=== PATIENT | male | born 2000 | race Caucasian/White ===

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

== ENCOUNTER 2024-10-22 16:20 | Emergency (ER) | payer BC, OTHER ==
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
[2024-10-22] MEDS: ACETAMINOPHEN TAB 500 MG TAB PO STA (17:21)
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
[2024-10-22 17:28] VITALS: RESP 20; TEMP 98.1
[2024-10-22 17:41] LABS: Appearance,Urine Clear (Clear); Bilirubin,Urine Negative (Negative); Blood,Urine Negative (Negative); Color,Urine Light Yellow; Glucose,Urine (UA) Negative (Negative); Ketones,Urine Negative (Negative); Leukocyte Esterase,Urine Negative (Negative); Mucus,Urine Rare /hpf; Nitrite,Urine Negative (Negative); PH, Urine 6.5 (5.0-8.0); Protein,Urine 1+ (Negative); RBC,Urine 1 /hpf (0-5); Specific Gravity,Urine 1.023 (1.001-1.035); Squamous Epithelial Cell,Urine <1 /hpf (0-4); Urobilinogen,Urine <2.0 mg/dL (<2.0); WBC,Urine 2 /hpf (0-5)
[2024-10-22] MEDS: IBUPROFEN 800 MG TAB PO STA (18:02)
[2024-10-22 18:09] VITALS: BP 115/76; PULSE 73
== END 2024-10-22 18:10 | disposition home or self-care (01) ==
LOC: EC 16:20
DX: S02.2XXA Fracture of nasal bones, initial encounter for closed fracture (principal); S20.219A Contusion of unspecified front wall of thorax, initial encounter; M79.602 Pain in left arm; V43.52XA Car driver injured in collision with other type car in traffic accident, initial encounter; Y92.410 Unspecified street and highway as the place of occurrence of the external cause
CPT/HCPCS: 70450; 70486; 71045; 72125; 72170; 81001; 99284